=== PATIENT | female | born 2000 | race Caucasian/White ===

== ENCOUNTER → 2018-01-25 | Outpatient (CLI) | payer MEDICAID, OTHER ==
--- NOTE | 2018-01-25 13:05 | US ---
EXAMINATION TYPE: US OB anatomy transabd DATE OF EXAM: 01/25/2018 COMPARISON: NONE HISTORY: Large for dates 2nd Trimester 036.62x0 TECHNIQUE: EXAM MEASUREMENTS: GESTATIONAL AGE / DATING Physician Established: (19 weeks/4 days) EDC: 06/17/18 Dates by LMP: (19 weeks/4 days) EDC: 06/17/18 Dates by First Scan: not available Dates by Current Scan for: (19 weeks/3 days) EDC: 06/18/18 SURVEY IUP: Single PLACENTA: multiple placental lakes noted, anterior PREVIA: No previa IMELDA: 12.7 cm 4.0 CERVICAL LENGTH (transabdominal: norm > 3.0cm): 4.0 cm When patient directed to empty some from her bladder for additional pictures, she emptied her bladder BIOMETRY PRESENTATION: Breech BPD: 4.5 cm 19 weeks / 4 days HC: 16.9 cm 19 weeks / 4 days AC: 14.5 cm 19 weeks / 6 days FL: 3.1 cm 19 weeks / 4 days ESTIMATED WEIGHT IN GRAMS: 307 grams ESTIMATED WEIGHT IN LBS/OZ: 0 lbs. 11 oz. WEIGHT PERCENTAGE BASED ON ESTABLISHED DATE: 52 % HC/AC: 1.2 FL/AC: 21.3 HEART RATE: 157 bpm RHYTHM: Normal ANATOMY SEEN (within normal limits): * Lateral Vent (< 1 cm) 0.6 cm * Cisterna Magna (< 1.1 cm) 0.4 cm * Nuchal Fold (< 0.6 cm) 0.3 cm * Cerebellum (varies with age) 1.7 cm Choroid Plexus (bilateral) Midline Falx Cavus Septi Pellucidi Four Chamber Heart Outflow tracts: LVOT/RVOT Stomach Situs Nose / Lips Diaphragm Kidneys (bilateral) Bladder Cord Insert Three Vessel Cord Longitudinal Spine Transverse Spine Arms (bilateral) Legs (bilateral) Normal appearing ultrasound. IMPRESSION: Single viable intrauterine corresponding to ultrasound age 19 weeks 3 days with estimated d ate of delivery 06/18/2018. Unremarkable survey.
== END ==
LOC: RADUSWWP 09:37
PROVIDERS: ATTEND Obstetrics & Gynecology
DX: O36.62X0 Maternal care for excessive fetal growth, second trimester, not applicable or unspecified (principal); Z3A.19 19 weeks gestation of pregnancy
CPT/HCPCS: 76811

== ENCOUNTER → 2018-02-18 | Outpatient (CLI) | payer MEDICAID, OTHER ==
[2018-02-18 16:38] LABS: HCT 33.1 % (34.0-46.0); HGB 10.9 gm/dL (11.4-16.0); MCH 30.8 pg (25.0-35.0); MCHC 33.1 g/dL (31.0-37.0); MCV 93.2 fL (80.0-100.0); Mean Platelet Volume 7.6; Platelet Count 301 k/uL (150-450); RBC 3.55 m/uL (3.80-5.40); RDW 13.9 % (11.5-15.5)
== END ==
LOC: LABWHC1 15:17
PROVIDERS: ATTEND Obstetrics & Gynecology
DX: Z34.02 Encounter for supervision of normal first pregnancy, second trimester (principal); Z3A.00 Weeks of gestation of pregnancy not specified
CPT/HCPCS: 36415; 82565; 82947; 85027; 86762; 86777; 86778; 86780; 86850; 86900; 86901; 87340

== ENCOUNTER → 2018-03-19 | Outpatient (CLI) | payer MEDICAID, OTHER ==
[2018-03-20 13:22] LABS: HCT 34.1 % (34.0-46.0); HGB 11.2 gm/dL (11.4-16.0); MCH 32.6 pg (25.0-35.0); MCHC 32.8 g/dL (31.0-37.0); Platelet Count 317 k/uL (150-450); RBC 3.43 m/uL (3.80-5.40); RDW 13.3 % (11.5-15.5); WBC 9.8 k/uL (4.0-11.0)
[2018-03-20 14:21] LABS: MCV 99.4 fL (80.0-100.0)
== END | disposition home or self-care (01) ==
LOC: EDSTATUS 10:31 → LABWHC1 12:00 → LABPRL 03-20 11:40
PROVIDERS: ATTEND Obstetrics & Gynecology
DX: Z34.02 Encounter for supervision of normal first pregnancy, second trimester (principal)
CPT/HCPCS: 85027; 86850; 86900; 86901

== ENCOUNTER → 2018-03-30 | Outpatient (CLI) | payer MEDICAID, OTHER ==
[2018-03-30 12:50] LABS: HCT 30.1 % (34.0-46.0); HGB 10.2 gm/dL (11.4-16.0); MCH 31.9 pg (25.0-35.0); MCHC 33.8 g/dL (31.0-37.0); Platelet Count 288 k/uL (150-450); RBC 3.19 m/uL (3.80-5.40); RDW 13.6 % (11.5-15.5); WBC 8.8 k/uL (4.0-11.0)
[2018-03-30 13:04] LABS: MCV 94.4 fL (80.0-100.0)
== END | disposition home or self-care (01) ==
LOC: LABWHC1 10:22
PROVIDERS: ATTEND Obstetrics & Gynecology
DX: Z34.02 Encounter for supervision of normal first pregnancy, second trimester (principal)
CPT/HCPCS: 36415; 82950; 85027; 86850

== ENCOUNTER → 2018-05-13 | Outpatient (CLI) | payer OTHER ==
--- NOTE | 2018-05-13 15:43 | US ---
EXAMINATION TYPE: US OB >= 14 wk fetus DATE OF EXAM: 05/13/2018 COMPARISON: Second trimester ultrasound January 25, 2018. CLINICAL HISTORY: O36.63X0 Large for dates third trimester; TECHNIQUE: Transabdominal (TA) GESTATIONAL AGE / DATING Physician Established: (35 weeks/0 days) EDC: 06/17/18 Dates by LMP: (35 weeks/0 days) EDC: 06/17/18 Dates by First Scan: 34 weeks/ 6 days EDC: 06/18/2018 Dates by Current Scan: (32 weeks/3 days) EDC: 07/05/2018 Beta HCG (if available): NA SURVEY IUP: Single PLACENTA: Anterior, couple of venous lakes noted superiorly and inferiorly PREVIA: No Previa IMELDA: 11.5 cm Normal CERVICAL LENGTH (transabdominal: norm > 3.0cm): 3.1 cm BIOMETRY PRESENTATION: Vertex LIE: Longitudinal BPD: 7.9 cm 31 weeks / 5 days HC: 28.8 cm 31 weeks / 5 days AC: 29.1 cm 336 weeks / 0 days FL: 6.6 cm 34 weeks / 1 days ESTIMATED WEIGHT IN GRAMS: 2120.0 grams ESTIMATED WEIGHT IN LBS/OZ: 4 lbs. 11 oz. WEIGHT PERCENTAGE BASED ON ESTABLISHED DATES: 7.5% HC/AC: 0.99 Normal FL/AC: 22.86 Normal HEART RATE: 134 bpm RHYTHM: Normal Single, live IUP,32 weeks/3 days, EDC: 07/05/2018 ; [id number]; EFW is less than10%, thus Dr Austin dawson be contacted of this finding at exam's end. JJ Single live intrauterine gestation is redemonstrated. Normal cephalad presentation to fetus is noted. No suspicious cervical thinning is seen. No ultrasound evidence for placenta previa. Venous lakes ar e felt present. Calculated amniotic fluid index is within normal limits. biometry measurements are fairly congruent except for estimated weight which is just below normal range. IMPRESSION: As above.
== END | disposition home or self-care (01) ==
LOC: RADUSWWP 14:54
PROVIDERS: ATTEND Obstetrics & Gynecology
DX: O36.63X0 Maternal care for excessive fetal growth, third trimester, not applicable or unspecified (principal); Z3A.32 32 weeks gestation of pregnancy
CPT/HCPCS: 76805

== ENCOUNTER 2019-01-28 17:56 | Emergency (ER) | payer OTHER ==
[2019-01-28 18:01] VITALS: BP 119/80; PULSE 114; RESP 18; TEMP 97.4
--- NOTE | 2019-01-28 18:54 | ED ---
General Adult HPI - General Chief complaint: Upper Respiratory Infection Stated complaint: Vomiting Time Seen by Provider: 01/28/19 18:43 Source: patient Mode of arrival: ambulatory Limitations: no limitations - History of Present Illness Initial comments: Patient is a 18-year-old female presenting to the emergency department with a chief complaint of a cough. She reports about 2 weeks ago she developed sinus congestion or sore throat. She states during the time she also developed a productive cough with white sputum production. She reports occasional chills but denies any fevers. She reports yesterday she had 2 episodes of nonbilious, posttussive emesis. Patient denies smoking, asthma or COPD. Although, she states there is exposure to secondhand smoke. Patient denies any abdominal pain, back pain, shortness of breath or chest pain. - Related Data Home Medications Medication Instructions Recorded Confirmed Pnv,Calcium 72/Iron/Folic Acid 1 tab PO DAILY 05/13/18 05/13/18 [ Plus Tablet] Levocetirizine Dihydrochloride 1 tab PO DAILY 05/14/18 05/14/18 [Xyzal] Previous Rx's Medication Instructions Recorded Ibuprofen [Motrin] 600 mg PO Q6HR PRN #30 tab 05/16/18 Albuterol Inhaler [Ventolin Hfa 1 - 2 puff INHALATION RT-Q6H PRN 01/28/19 Inhaler] #1 inhaler Azithromycin [Zithromax Z-pack] 0 mg PO DIRECTED #1 pack 01/28/19 Benzonatate [Tessalon Perles] 100 mg PO TID PRN #15 capsule 01/28/19 Allergies Allergy/AdvReac Type Severity Reaction Status Date / Time banana Allergy Nausea Verified 01/28/19 17:57 egg Allergy Vomiting Verified 01/28/19 17:57 milk Allergy Nausea & Verified 01/28/19 17:57 Vomiting tuna oil AdvReac Unknown Verified 01/28/19 17:57 Review of Systems ROS Statement: Those systems with pertinent positive or pertinent negative responses have been documented in the HPI. ROS Other: All systems not noted in ROS Statement are negative. Past Medical History Past Medical History: No Reported History Additional Past Medical History / Comment(s): Obstetrics history: This is her first and she's had care with me since 16 weeks gestation. Blood type is O- antibodies negative, rubella immune, RPR nonreactive, hep is B- , toxo blood loss is negative. Normal 1 hour glucose tolerance test. GBS unknown. History of Any Multi-Drug Resistant Organisms: None Reported Past Surgical History: Adenoidectomy, Ear Surgery, Tonsillectomy Past Anesthesia/Blood Transfusion Reactions: No Reported Reaction Past Psychological History: No Psychological Hx Reported Smoking Status: Never smoker Past Alcohol Use History: None Reported Past Drug Use History: None Reported - Past Family History Mother Family Medical History: Diabetes Mellitus General Exam Limitations: no limitations General appearance: alert, in no apparent distress Head exam: Present: atraumatic, normocephalic, normal inspection Eye exam: Present: normal appearance Pupils: Present: normal accommodation ENT exam: Present: normal exam, normal oropharynx (Uvula midline. No erythematous, enlarged tonsils or exudates.), mucous membranes moist, TM's normal bilaterally, normal external ear exam Neck exam: Present: normal inspection, full ROM, lymphadenopathy (Anterior cervical lymph nodes) Respiratory exam: Present: normal lung sounds bilaterally Cardiovascular Exam: Present: regular rate, normal rhythm, normal heart sounds Extremities exam: Present: normal inspection, full ROM Back exam: Present: normal inspection, full ROM Neurological exam: Present: alert, oriented X3 Psychiatric exam: Present: normal affect, normal mood Skin exam: Present: warm, dry, intact, normal color Course Vital Signs 01/28/19 17:57 Temperature 97.4 F L Pulse Rate 114 H Respiratory 18 Rate Blood Pressure 119/80 O2 Sat by Pulse 97 Oximetry Medical Decision Making - Medical Decision Making Patient is a 18-year-old female presenting to emergency Department with a chief complaint of a cough. She appears to have an upper respiratory infection as been ongoing for about 2 weeks along with a cough. No smoking, no COPD or asthma. Chest x-ray is unremarkable. Physical examination shows no signs of respiratory distress, wheezing, rales or rhonchi. I suspect the patient to have bronchitis. Considering her symptoms have been ongoing for about 2 weeks I'm going to treat the patient with azithromycin. Patient also given Tessalon Perles to help with the cough. Patient also given albuterol inhaler. Strict return parameters were thoroughly discussed with patient was understanding and agreeable. Case discussed with physician. Disposition Clinical Impression: Bronchitis Disposition: HOME SELF-CARE Condition: Stable Instructions (If sedation given, give patient instructions): Acute Bronchitis (ED) Additional Instructions: Please take prescribed medication as directed. Please follow with primary care. Patient to emergency department if symptoms worsen. Prescriptions: Benzonatate [Tessalon Perles] 100 mg PO TID PRN #15 capsule PRN Reason: Cough Albuterol Inhaler [Ventolin Hfa Inhaler] 1 - 2 puff INHALATION RT-Q6H PRN #1 inhaler PRN Reason: Shortness Of Breath Azithromycin [Zithromax Z-pack] 0 mg PO DIRECTED #1 pack Is patient prescribed a controlled substance at d/c from ED?: No Referrals: Nonstaff,Physician [REFERRING] - 1-2 days Time of Disposition: 20:03
--- NOTE | 2019-01-28 20:11 | XR ---
EXAMINATION TYPE: XR chest 2V DATE OF EXAM: 01/28/2019 COMPARISON: NONE HISTORY: Cough, sore throat TECHNIQUE: Frontal and lateral views of the chest are obtained. FINDINGS: There is no focal air space opacity, pleural effusion, or pneumothorax seen. The cardiac silhouette size is within normal limits. Mild convex right thoracic curvature. IMPRESSION: No acute cardiopulmonary process.
== END 2019-01-28 20:15 | disposition home or self-care (01) ==
LOC: EC 17:56
DX: J40 Bronchitis, not specified as acute or chronic (principal); Z91.018 Allergy to other foods; Z91.012 Allergy to eggs; Z91.011 Allergy to milk products
CPT/HCPCS: 71046; 99283

== ENCOUNTER 2019-03-28 17:14 | Emergency (ER) | payer OTHER ==
[2019-03-28 17:18] VITALS: BP 133/84; PULSE 98; RESP 20; TEMP 97.7
--- NOTE | 2019-03-28 17:29 | ED ---
General Adult HPI - General Chief complaint: Extremity Injury, Upper Stated complaint: Wrist pain Time Seen by Provider: 03/28/19 17:23 Source: patient Mode of arrival: ambulatory Limitations: no limitations - History of Present Illness Initial comments: Patient is a 18-year-old female presenting to the emergency department with a chief complaint of left wrist pain. Patient reports about one week ago she was carrying a basket of laundry and felt a pop on the left wrist and a sense developed pain. States the pain is exacerbated with flexion of the left wrist. Denies any numbness or tingling. Denies any trauma to the region or previous surgeries. Does report taking [id number] analgesics with some improvement of symptoms. Denies any skin discoloration or swelling. - Related Data Home Medications Medication Instructions Recorded Confirmed Pnv,Calcium 72/Iron/Folic Acid 1 tab PO DAILY 05/13/18 05/13/18 [ Plus Tablet] Levocetirizine Dihydrochloride 1 tab PO DAILY 05/14/18 05/14/18 [Xyzal] Previous Rx's Medication Instructions Recorded Ibuprofen [Motrin] 600 mg PO Q6HR PRN #30 tab 05/16/18 Albuterol Inhaler [Ventolin Hfa 1 - 2 puff INHALATION RT-Q6H PRN 01/28/19 Inhaler] #1 inhaler Azithromycin [Zithromax Z-pack] 0 mg PO DIRECTED #1 pack 01/28/19 Benzonatate [Tessalon Perles] 100 mg PO TID PRN #15 capsule 01/28/19 Allergies Allergy/AdvReac Type Severity Reaction Status Date / Time banana Allergy Nausea Verified 03/28/19 17:17 egg Allergy Vomiting Verified 03/28/19 17:17 milk Allergy Nausea & Verified 03/28/19 17:17 Vomiting tuna oil AdvReac Unknown Verified 03/28/19 17:17 Review of Systems ROS Statement: Those systems with pertinent positive or pertinent negative responses have been documented in the HPI. ROS Other: All systems not noted in ROS Statement are negative. Past Medical History Past Medical History: No Reported History Additional Past Medical History / Comment(s): Obstetrics history: This is her first and she's had care with me since 16 weeks gestation. Blood type is O- antibodies negative, rubella immune, RPR nonreactive, hep is B- , toxo blood loss is negative. Normal 1 hour glucose tolerance test. GBS unknown. History of Any Multi-Drug Resistant Organisms: None Reported Past Surgical History: Adenoidectomy, Ear Surgery, Tonsillectomy Past Anesthesia/Blood Transfusion Reactions: No Reported Reaction Past Psychological History: No Psychological Hx Reported Smoking Status: Never smoker Past Alcohol Use History: None Reported Past Drug Use History: None Reported - Past Family History Mother Family Medical History: Diabetes Mellitus General Exam Limitations: no limitations General appearance: alert, in no apparent distress Head exam: Present: atraumatic, normocephalic, normal inspection Eye exam: Present: normal appearance Pupils: Present: normal accommodation ENT exam: Present: normal exam, mucous membranes moist Neck exam: Present: normal inspection, full ROM Respiratory exam: Present: normal lung sounds bilaterally Cardiovascular Exam: Present: regular rate, normal rhythm, normal heart sounds Extremities exam: Present: normal inspection, tenderness (No anatomical snuffbox tenderness.), normal capillary refill. Absent: full ROM (Limited range of motion with full flexion.) Back exam: Present: normal inspection, full ROM Neurological exam: Present: alert, oriented X3 Psychiatric exam: Present: normal affect, normal mood Skin exam: Present: warm, dry, intact, normal color Course Vital Signs 03/28/19 17:15 Temperature 97.7 F Pulse Rate 98 Respiratory 20 Rate Blood Pressure 133/84 O2 Sat by Pulse 99 Oximetry Medical Decision Making - Medical Decision Making Patient is a 18-year-old female presenting to emergency Department with a chief complaint of wrist pain. On exam patient does have tenderness in the left wrist with limited range of motion of full flexion. This occurred 1 week ago after she was carrying laundry basket. No anatomical snuffbox tenderness. No obvious signs of trauma, swelling, skin discoloration. X-rays unremarkable. Shahab wrap was applied. Patient advised to apply ice compresses and with Shahab wrap only throughout the day. She was advised to follow with delivery specialist. She was advised to alternate between Tylenol Motrin for pain control. Return parameters discussed the patient was understanding and agreeable. Case discussed with physician. Disposition Clinical Impression: Sprain of wrist, left, Wrist pain, left Disposition: HOME SELF-CARE Condition: Stable Instructions (If sedation given, give patient instructions): Wrist Injury (ED) Additional Instructions: Follow-up with an delivery specialist if symptoms not improved. Apply ice compress to minimize symptoms. Wear Shahab wrap throughout the day but not at night. Return to emergency department if symptoms worsen. Is patient prescribed a controlled substance at d/c from ED?: No Referrals: Concha Pedroza MD [Primary Care Provider] - 1-2 days Josesito Torres PAC [PHYSICIAN [employer]ELD MECHANIC] - 1-2 days Time of Disposition: 17:55
--- NOTE | 2019-03-28 17:47 | XR ---
EXAMINATION TYPE: XR wrist complete LT DATE OF EXAM: 03/28/2019 COMPARISON: 03/10/2013 HISTORY: Wrist pain TECHNIQUE: 4 views FINDINGS: I see no fracture nor dislocation. Joint spaces are normal. Carpal bones are intact. There are no pathologic calcifications. Scaphoid appears normal. IMPRESSION: Normal left wrist. No change.
== END 2019-03-28 18:00 | disposition home or self-care (01) ==
LOC: EC 17:14
DX: S63.502A Unspecified sprain of left wrist, initial encounter (principal); Z91.018 Allergy to other foods; Z91.012 Allergy to eggs; Z91.013 Allergy to seafood; Z91.011 Allergy to milk products; X50.9XXA Other and unspecified overexertion or strenuous movements or postures, initial encounter
CPT/HCPCS: 99283

== ENCOUNTER 2020-08-26 23:49 | Emergency (ER) | payer OTHER ==
[2020-08-27 00:02] VITALS: RESP 16; TEMP 97.9
[2020-08-27] MEDS ORDERED: Rhogam IMMUNE GLOBULIN 1,500 UNIT/1 ML IM ONE (00:21)
[2020-08-27 00:38] LABS: Basophils # (A) 0.1 k/uL (0-0.2); Basophils % (A) 1 %; Eosinophils # (A) 0.2 k/uL (0-0.7); Eosinophils % (A) 2 %; HCT 33.7 % (34.0-46.0); HGB 11.8 gm/dL (11.4-16.0); Lymphocytes # (A) 2.6 k/uL (1.0-4.8); Lymphocytes % (A) 28 %; MCH 30.9 pg (25.0-35.0); MCHC 34.9 g/dL (31.0-37.0); MCV 88.6 fL (80.0-100.0); Mean Platelet Volume 7.7; Monocytes # (A) 0.5 k/uL (0-1.0); Monocytes % (A) 6 %; Neutrophils # (A) 5.7 k/uL (1.3-7.7); Neutrophils % (A) 62 %; Platelet Count 294 k/uL (150-450); RDW 14.1 % (11.5-15.5); WBC 9.1 k/uL (3.8-10.6)
[2020-08-27 01:00] LABS: African American GFR (CKD) >90 (>60 ml/min/1.73 sqM); Anion Gap 8 mmol/L; Blood Urea Nitrogen 9 mg/dL (7-17); Calcium 9.8 mg/dL (8.4-10.2); Carbon Dioxide 23 mmol/L (22-30); Chloride 107 mmol/L (98-107); Glucose 97 mg/dL (74-99); Non-African American GFR(CKD) >90 (>60 ml/min/1.73 sqM); Potassium 3.3 mmol/L (3.5-5.1); Sodium 138 mmol/L (137-145)
--- NOTE | 2020-08-27 01:08 | ED ---
Female Urogenital HPI - General Chief complaint: Vaginal Bleeding Stated complaint: Vaginal Bleeding, 16 wks pgt Time Seen by Provider: 08/27/20 00:02 Source: patient, RN notes reviewed Mode of arrival: ambulatory Limitations: no limitations - History of Present Illness Initial comments: This a 19-year-old female presents emergency from chief complaint of vaginal bleeding. Patient states that she is currently 16 weeks 3 days she is A0 and is seen [employer] in [place]. Patient states that she started having some swelling recently no significant abdominal pain and cramping of back pain no dysuria no hematuria. - Related Data Home Medications Medication Instructions Recorded Confirmed Pnv,Calcium 72/Iron/Folic Acid 1 tab PO DAILY 05/13/18 05/13/18 [ Plus Tablet] Levocetirizine Dihydrochloride 1 tab PO DAILY 05/14/18 05/14/18 [Xyzal] Previous Rx's Medication Instructions Recorded Ibuprofen [Motrin] 600 mg PO Q6HR PRN #30 tab 05/16/18 Albuterol Inhaler (Mhu) [Ventolin 1 - 2 puff INHALATION RT-Q6H PRN 01/28/19 Hfa Inhaler (Mhu)] #1 inhaler Azithromycin [Zithromax Z-pack (6 0 mg PO DIRECTED #1 pack 01/28/19 tabs)] Benzonatate [Tessalon Perles] 100 mg PO TID PRN #15 capsule 01/28/19 Cephalexin [Keflex] 500 mg PO Q8HR #21 cap 08/27/20 Allergies Allergy/AdvReac Type Severity Reaction Status Date / Time banana Allergy Nausea Verified 08/27/20 00:02 egg Allergy Vomiting Verified 08/27/20 00:02 milk Allergy Nausea & Verified 08/27/20 00:02 Vomiting tuna oil AdvReac Unknown Verified 08/27/20 00:02 Review of Systems ROS Statement: Those systems with pertinent positive or pertinent negative responses have been documented in the HPI. ROS Other: All systems not noted in ROS Statement are negative. Past Medical History Past Medical History: No Reported History Additional Past Medical History / Comment(s): Obstetrics history: This is her first and she's had care with me since 16 weeks gestation. Blood type is O- antibodies negative, rubella immune, RPR nonreactive, hep is B- , toxo blood loss is negative. Normal 1 hour glucose tolerance test. GBS unknown. FAP syndrome History of Any Multi-Drug Resistant Organisms: None Reported Past Surgical History: Adenoidectomy, Ear Surgery, Tonsillectomy Past Anesthesia/Blood Transfusion Reactions: No Reported Reaction Past Psychological History: No Psychological Hx Reported Smoking Status: Never smoker Past Alcohol Use History: None Reported Past Drug Use History: None Reported - Past Family History Mother Family Medical History: Diabetes Mellitus General Exam Limitations: no limitations General appearance: alert, in no apparent distress Head exam: Present: atraumatic, normocephalic, normal inspection Neck exam: Present: normal inspection. Absent: tenderness, meningismus, lymphadenopathy Respiratory exam: Present: normal lung sounds bilaterally. Absent: respiratory distress, wheezes, rales, rhonchi, stridor Cardiovascular Exam: Present: regular rate, normal rhythm, normal heart sounds. Absent: systolic murmur, diastolic murmur, rubs, gallop, clicks GI/Abdominal exam: Present: soft, normal bowel sounds. Absent: distended, tenderness, guarding, rebound, rigid Back exam: Absent: CVA tenderness (R), CVA tenderness (L) Neurological exam: Present: alert Skin exam: Present: warm, dry, intact, normal color. Absent: rash Course Vital Signs 08/26/20 23:57 Temperature 97.9 F Pulse Rate 96 Respiratory 16 Rate Blood Pressure 113/81 O2 Sat by Pulse 96 Oximetry Medical Decision Making - Medical Decision Making Patient ultrasound does not reveal any complicating processes. Patient does have evidence urinary tract infection. Patient's O- blood type was given RhoGAM. Patient be discharged in stable condition with antibiotics. - Lab Data Result diagrams: 08/27/20 00:31 08/27/20 00:31 Lab Results 08/27/20 08/27/20 08/27/20 Range/Units 00:29 00:31 00:31 WBC 9.1 (3.8-10.6) k/uL RBC 3.80 (3.80-5.40) m/uL Hgb 11.8 (11.4-16.0) gm/dL Hct 33.7 L (34.0-46.0) % MCV 88.6 (80.0-100.0) fL MCH 30.9 (25.0-35.0) pg MCHC 34.9 (31.0-37.0) g/dL RDW 14.1 (11.5-15.5) % Plt Count 294 (150-450) k/uL MPV 7.7 Neutrophils % 62 % Lymphocytes % 28 % Monocytes % 6 % Eosinophils % 2 % Basophils % 1 % Neutrophils # 5.7 (1.3-7.7) k/uL Lymphocytes # 2.6 (1.0-4.8) k/uL Monocytes # 0.5 (0-1.0) k/uL Eosinophils # 0.2 (0-0.7) k/uL Basophils # 0.1 (0-0.2) k/uL Sodium 138 (137-145) mmol/L Potassium 3.3 L (3.5-5.1) mmol/L Chloride 107 (98-107) mmol/L Carbon Dioxide 23 (22-30) mmol/L Anion Gap 8 mmol/L BUN 9 (7-17) mg/dL Creatinine 0.47 L (0.52-1.04) mg/dL Est GFR (CKD-EPI)AfAm >90 (>60 ml/min/1.73 sqM) Est GFR (CKD-EPI)NonAf >90 (>60 ml/min/1.73 sqM) Glucose 97 (74-99) mg/dL Calcium 9.8 (8.4-10.2) mg/dL Urine Color Urine Appearance (Clear) Urine pH (5.0-8.0) Ur Specific Mcbee (1.001-1.035) Urine Protein (Negative) Urine Glucose (UA) (Negative) Urine Ketones (Negative) Urine Blood (Negative) Urine Nitrite (Negative) Urine Bilirubin (Negative) Urine Urobilinogen (<2.0) mg/dL Ur Leukocyte Esterase (Negative) Urine RBC (0-5) /hpf Urine WBC (0-5) /hpf Ur Squamous Epith Cells (0-4) /hpf Calcium Oxalate Crystal (None) /hpf Urine Bacteria (None) /hpf Urine Mucus (None) /hpf Blood Type O Negative Blood Type Recheck O Neg Bld Type Recheck Status No Antibody Screen NEGATIVE Spec Expiration Date 08/30/2020 - 232808/27/20 Range/Units 01:52 WBC (3.8-10.6) k/uL RBC (3.80-5.40) m/uL Hgb (11.4-16.0) gm/dL Hct (34.0-46.0) % MCV (80.0-100.0) fL MCH (25.0-35.0) pg MCHC (31.0-37.0) g/dL RDW (11.5-15.5) % Plt Count (150-450) k/uL MPV Neutrophils % % Lymphocytes % % Monocytes % % Eosinophils % % Basophils % % Neutrophils # (1.3-7.7) k/uL Lymphocytes # (1.0-4.8) k/uL Monocytes # (0-1.0) k/uL Eosinophils # (0-0.7) k/uL Basophils # (0-0.2) k/uL Sodium (137-145) mmol/L Potassium (3.5-5.1) mmol/L Chloride (98-107) mmol/L Carbon Dioxide (22-30) mmol/L Anion Gap mmol/L BUN (7-17) mg/dL Creatinine (0.52-1.04) mg/dL Est GFR (CKD-EPI)AfAm (>60 ml/min/1.73 sqM) Est GFR (CKD-EPI)NonAf (>60 ml/min/1.73 sqM) Glucose (74-99) mg/dL Calcium (8.4-10.2) mg/dL Urine Color Yellow Urine Appearance Cloudy H (Clear) Urine pH 6.0 (5.0-8.0) Ur Specific Mcbee 1.034 (1.001-1.035) Urine Protein 1+ H (Negative) Urine Glucose (UA) Negative (Negative) Urine Ketones 1+ H (Negative) Urine Blood Moderate H (Negative) Urine Nitrite Negative (Negative) Urine Bilirubin 1+ H (Negative) Urine Urobilinogen 4.0 (<2.0) mg/dL Ur Leukocyte Esterase Large H (Negative) Urine RBC 6 H (0-5) /hpf Urine WBC 71 H (0-5) /hpf Ur Squamous Epith Cells 7 H (0-4) /hpf Calcium Oxalate Crystal Rare H (None) /hpf Urine Bacteria Rare H (None) /hpf Urine Mucus Many H (None) /hpf Blood Type Blood Type Recheck Bld Type Recheck Status Antibody Screen Spec Expiration Date Disposition Clinical Impression: Urinary tract infection, Vaginal bleeding during Disposition: HOME SELF-CARE Condition: Stable Instructions (If sedation given, give patient instructions): Urinary Tract Infection in Women (ED) Additional Instructions: Please return to the Emergency Department if symptoms worsen or any other concerns. Prescriptions: Cephalexin [Keflex] 500 mg PO Q8HR #21 cap Is patient prescribed a controlled substance at d/c from ED?: No Referrals: None,Stated [Primary Care Provider] - 1-2 days Time of Disposition: 02:18
--- NOTE | 2020-08-27 01:31 | US ---
EXAMINATION TYPE: US OB >= 14 wk fetus DATE OF EXAM: 08/27/2020 COMPARISON: None for this . US 2019 CLINICAL HISTORY: bleeding Bleeding. . TECHNIQUE: Transabdominal (TA) GESTATIONAL AGE / DATING Physician Established: (16 weeks/2 days) EDC: 02/08/2021 Dates by LMP: 05/04/2020 (16 weeks/2 days) EDC: 02/08/2021 Dates by First Scan: This is first scan at this facility. Dates by Current Scan: (17 weeks/0 days) EDC: 02/04/2021 SURVEY IUP: Single PLACENTA: Fundal. Multiple hypoechoic areas seen. Larges hypoechoic area seen measures: 2.0 x 1.9 x 0.5 cm. Possible gardner. Vascularity seen posterior to the placenta. PREVIA: No Previa seen. IMELDA: 10.89 cm Normal CERVICAL LENGTH (transabdominal: norm > 3.0cm): 3.52 cm BIOMETRY PRESENTATION: Vertex LIE: Oblique BPD: 3.42 cm 16 weeks / 4 days HC: 13.08 cm 16 weeks / 5 days AC: 12.27 cm 17 weeks / 6 days FL: 2.25 cm 16 weeks / 5 days ESTIMATED WEIGHT IN GRAMS: 187.89 grams ESTIMATED WEIGHT IN LBS/OZ: 0 lbs. 7 oz. WEIGHT PERCENTAGE BASED ON ESTABLISHED DATES: 95.0% HC/AC: 1.07 Normal FL/AC: 18.32 HEART RATE: 146 bpm RHYTHM: Normal Weight percentage based on established dates is 95.0% IMPRESSION: The ultrasound gestational age is 17 weeks. No evidence of placenta previa. I do not see a definite placental abruption.
[2020-08-27 02:11] LABS: Appearance,Urine Cloudy (Clear); Bacteria,Urine Rare /hpf; Bilirubin,Urine 1+ (Negative); Blood,Urine Moderate (Negative); Calcium Oxalate Crystals,Urine Rare /hpf; Color,Urine Yellow; Glucose,Urine (UA) Negative (Negative); Ketones,Urine 1+ (Negative); Leukocyte Esterase,Urine Large (Negative); Mucus,Urine Many /hpf; Nitrite,Urine Negative (Negative); Protein,Urine 1+ (Negative); RBC,Urine 6 /hpf (0-5); Specific Gravity,Urine 1.034 (1.001-1.035); Squamous Epithelial Cell,Urine 7 /hpf (0-4); WBC,Urine 71 /hpf (0-5)
[2020-08-27] MEDS ORDERED: cefTRIAXone IN SWFI 1,000 MG/10 ML SYRINGE IVP STA (02:16)
[2020-08-27 02:25] VITALS: BP 106/79; PULSE 72
== END 2020-08-27 02:31 | disposition home or self-care (01) ==
LOC: EC 23:49
DX: O23.42 Unspecified infection of urinary tract in pregnancy, second trimester (principal); O20.9 Hemorrhage in early pregnancy, unspecified; Z3A.17 17 weeks gestation of pregnancy; Z79.1 Long term (current) use of non-steroidal anti-inflammatories (NSAID); Z79.899 Other long term (current) drug therapy; Z83.3 Family history of diabetes mellitus
CPT/HCPCS: 36415; 86900; 86901; 80048; 85025; 86850; 81001; 87086; 76805; 96374; 96372; 99284; J2790; J0696

== ENCOUNTER 2020-09-09 17:44 | Emergency (ER) | payer OTHER ==
[2020-09-09 18:02] VITALS: BP 102/70; PULSE 94; RESP 18; TEMP 98.1
[2020-09-09 18:48] LABS: Appearance,Urine Cloudy (Clear); Bacteria,Urine Occasional /hpf; Bilirubin,Urine Negative (Negative); Blood,Urine Negative (Negative); Budding Yeast,Urine Few /hpf; Color,Urine Yellow; Glucose,Urine (UA) Negative (Negative); Ketones,Urine Negative (Negative); Leukocyte Esterase,Urine Moderate (Negative); Mucus,Urine Many /hpf; Nitrite,Urine Negative (Negative); PH, Urine 7.5 (5.0-8.0); Protein,Urine Trace (Negative); RBC,Urine 2 /hpf (0-5); Specific Gravity,Urine 1.024 (1.001-1.035); Squamous Epithelial Cell,Urine 13 /hpf (0-4); Urobilinogen,Urine <2.0 mg/dL (<2.0); WBC,Urine 8 /hpf (0-5)
[2020-09-09] MEDS ORDERED: AZITHROMYCIN 500 MG TAB PO STA (19:33)
[2020-09-09] MEDS ORDERED: cefTRIAXone 1,000 MG VIAL (IM USE) IM STA (19:33)
--- NOTE | 2020-09-09 19:48 | ED ---
General Adult HPI - General Chief complaint: Abdominal Pain Stated complaint: revisit- abd pain, 18wks preg Time Seen by Provider: 09/09/20 19:13 Source: patient Mode of arrival: ambulatory Limitations: no limitations - History of Present Illness Initial comments: 19 year-old male patient presents to the emergency department for evaluation of vaginal discharge and abdominal pain. Patient is 18 weeks , with a living child at home. Patient states she is here on vacation from [place]. She was seen last week for vaginal bleeding and abdominal pain. Had full labs and US which was unremarkable. She did receive rhogam at that visit. She was treated for UTI. States that the bleeding seems to have stopped but she is having brownish colored discharge that is stringy. Denies any vaginal pain or itching. Denies concern for STI. Reports pain to the midepigastric area and to the suprapubic region. Denies any current dysuria, urinary urgency, urinary frequency. Patient denies any recent rash, fever, chills, cough, shortness of breath, chest pain, nausea, vomiting, diarrhea, constipation, back pain, numbness, tingling, dizziness, weakness, headache, visual changes, or any other complaints. - Related Data Home Medications Medication Instructions Recorded Confirmed Pnv,Calcium 72/Iron/Folic Acid 1 tab PO DAILY 05/13/18 09/09/20 [ Plus Tablet] Allergies Allergy/AdvReac Type Severity Reaction Status Date / Time banana Allergy Nausea Verified 09/09/20 21:47 egg Allergy Vomiting Verified 09/09/20 21:47 milk Allergy Nausea & Verified 09/09/20 21:47 Vomiting tuna oil AdvReac Unknown Verified 09/09/20 21:47 Review of Systems ROS Statement: Those systems with pertinent positive or pertinent negative responses have been documented in the HPI. ROS Other: All systems not noted in ROS Statement are negative. Past Medical History Past Medical History: No Reported History Additional Past Medical History / Comment(s): Obstetrics history: This is her first and she's had care with me since 16 weeks gestation. Blood type is O- antibodies negative, rubella immune, RPR nonreactive, hep is B- , toxo blood loss is negative. Normal 1 hour glucose tolerance test. GBS unknown. FAP syndrome History of Any Multi-Drug Resistant Organisms: None Reported Past Surgical History: Adenoidectomy, Ear Surgery, Tonsillectomy Past Anesthesia/Blood Transfusion Reactions: No Reported Reaction Past Psychological History: No Psychological Hx Reported Smoking Status: Never smoker Past Alcohol Use History: None Reported Past Drug Use History: None Reported - Past Family History Mother Family Medical History: Diabetes Mellitus General Exam Limitations: no limitations General appearance: alert, in no apparent distress, other (This is a well- developed, well-nourished adult female patient in no acute distress. Vital signs upon presentation are temperature 98.1F, pulse 94, respirations 18, blood pressure 102/70, pulse ox 100% on room air.) ENT exam: Present: normal exam, normal oropharynx, mucous membranes moist Respiratory exam: Present: normal lung sounds bilaterally. Absent: respiratory distress, wheezes, rales, rhonchi, stridor Cardiovascular Exam: Present: regular rate, normal rhythm, normal heart sounds. Absent: systolic murmur, diastolic murmur, rubs, gallop, clicks GI/Abdominal exam: Present: soft, normal bowel sounds. Absent: distended, tenderness, guarding, rebound, rigid Back exam: Present: normal inspection. Absent: CVA tenderness (R), CVA tenderness (L) Neurological exam: Present: alert, oriented X3, CN II-XII intact Psychiatric exam: Present: normal affect, normal mood Skin exam: Present: warm, dry, intact, normal color. Absent: rash Course Vital Signs 09/09/20 17:59 Temperature 98.1 F Pulse Rate 94 Respiratory 18 Rate Blood Pressure 102/70 O2 Sat by Pulse 100 Oximetry Medical Decision Making - Medical Decision Making 19 year-old male patient presents for abdominal pain and abnormal vaginal discharge. She is 18 weeks . Physical exam reveals mild suprapubic tenderness. No fever. Pelvic exam revealed thick stringy discharge. Cervix appears normal. US showed no complicating process. heart rate 142. She we will treat for STI just in case with IM rocephin and oral azithromcyin, since her OBGYN is located in [place] and she will not be able to follow up right away. She'll be discharged follow-up with [facility] as soon as possible, states she is traveling back home within the next 2 days. Return parameters were discussed in detail. She verbalizes understanding and agrees with this plan. Case discussed with my attending Dr. Espinoza. - Lab Data Lab Results 09/09/20 09/09/20 Range/Units 18:37 21:30 Urine Color Yellow Urine Appearance Cloudy H (Clear) Urine pH 7.5 (5.0-8.0) Ur Specific [place] 1.024 (1.001-1.035) Urine Protein Trace H (Negative) Urine Glucose (UA) Negative (Negative) Urine Ketones Negative (Negative) Urine Blood Negative (Negative) Urine Nitrite Negative (Negative) Urine Bilirubin Negative (Negative) Urine Urobilinogen <2.0 (<2.0) mg/dL Ur Leukocyte Esterase Moderate H (Negative) Urine RBC 2 (0-5) /hpf Urine WBC 8 H (0-5) /hpf Ur Squamous Epith Cells 13 H (0-4) /hpf Urine Bacteria Occasional H (None) /hpf Urine Mucus Many H (None) /hpf Urine Yeast (Budding) Few H (None) /hpf Trichomonas Ag (Rapid) Negative (Negative) - Radiology Data Radiology results: report reviewed, image reviewed Ultrasound of the fetus is obtained. Report was reviewed in its entirety. Impression by Dr. Roque placental abruption. getting process seen. No evidence of placenta previa. Disposition Clinical Impression: Vaginal discharge, Abdominal pain during Disposition: HOME SELF-CARE Condition: Good Instructions (If sedation given, give patient instructions): Abdominal Pain in (ED) Additional Instructions: Follow-up with your [facility] for recheck as soon as possible. Return to the emergency department for any new, worsening, or concerning symptoms. Is patient prescribed a controlled substance at d/c from ED?: No Referrals: None,Stated [Primary Care Provider] - 1-2 days Time of Disposition: 21:51
--- NOTE | 2020-09-09 21:00 | US ---
EXAMINATION TYPE: US OB >= 14 wk fetus DATE OF EXAM: 09/09/2020 COMPARISON: US CLINICAL HISTORY: Abd pain, 18 weeks, .Pain. . TECHNIQUE: Transabdominal (TA) GESTATIONAL AGE / DATING Physician Established: (18 weeks/2 days) EDC: 02/08/2021 Dates by LMP: (18 weeks/2 days) EDC: 02/08/2021 Dates by First Scan: (18 weeks/6 days) EDC: 02/04/2021 Dates by Current Scan: (18 weeks/ 0 days) EDC: 02/10/2021 SURVEY IUP: Single PLACENTA: Posterior. Placenta does appear to be heterogeneous in echotexture. Complex area seen measu ring 1.6 x 0.8 x 0.7 cm. PREVIA: No Previa is seen at this time. Limited evaluation, bladder not fully distended. IMELDA: 10.23 cm Normal CERVICAL LENGTH (transabdominal: norm > 3.0cm): 3.33 cm BIOMETRY PRESENTATION: Breech LIE: Oblique BPD: 3.76 cm 17 weeks / 3 days HC: 14.78 cm 17 weeks / 6 days AC: 13.33 cm 18 weeks / 6 days FL: 2.63 cm 18 weeks / 0 days ESTIMATED WEIGHT IN GRAMS: 235.86 grams ESTIMATED WEIGHT IN LBS/OZ: 0 lbs. 8 oz. WEIGHT PERCENTAGE BASED ON ESTABLISHED DATES: 49.4% HC/AC: 1.11 Normal FL/AC: 19.75 HEART RATE: 142 bpm RHYTHM: Normal \ IMPRESSION: No placental abruption. No complicating process seen. No evidence of placenta previa.
[2020-09-10 14:52] LABS: C. trachomatis,PCR Negative (Neg,Equiv); Chlamydia trachomatis Source Cervix; N. gonorrhoeae,PCR Negative (Neg,Equiv); Neisseria Source Cervix
== END 2020-09-09 21:57 | disposition home or self-care (01) ==
LOC: EC 17:44
DX: O23.592 Infection of other part of genital tract in pregnancy, second trimester (principal); N89.8 Other specified noninflammatory disorders of vagina; O26.892 Other specified pregnancy related conditions, second trimester; R10.9 Unspecified abdominal pain; Z3A.18 18 weeks gestation of pregnancy
CPT/HCPCS: 81001; 87808; 87491; 87591; 87070; 76805; 96372; 99284; J0696

== ENCOUNTER → 2023-05-14 | Outpatient (CLI) | payer OTHER ==
--- NOTE | 2023-05-14 21:59 | US ---
EXAMINATION TYPE: US thyroid st tissue head/neck DATE OF EXAM: 05/14/2023 COMPARISON: NONE CLINICAL INDICATION: Female, 22 years old with history of D13.91 FAMILIAL ADENOMATOUS POLYPOSIS; Fami lial multiple polyposis syndrome. GLAND SIZE: Right Lobe: 4.4 x 1.7 x 1.3 cm Overall Parenchyma: homogeneous Left Lobe: 4.4 x 1.4 x 1.2 cm Overall Parenchyma: homogeneous Isthmus Thickness: 0.26 cm NODULES RIGHT: # of nodules measured on right: 1 1. 0.5 X 0.3 x 0.2 cm, lower mid, TIRADS Score: 0 TIRADS Category 1: Composition: Cystic or almost completely cystic (0 points). Recommendation: No FNA Prior size: No prior Compatible: Cyst. LEFT: # of nodules measured on left: 0 ISTHMUS: # of nodules measured in the isthmus: 0 Bilateral neck scanned, no evidence of lymphadenopathy. IMPRESSION: No suspicious thyroid nodules.
== END | disposition home or self-care (01) ==
LOC: RADUSWWP 14:56
PROVIDERS: ATTEND Internal Medicine Gastroenterology
DX: D13.91 Familial adenomatous polyposis (principal)
CPT/HCPCS: 76536

== ENCOUNTER → 2023-07-06 | Day surgery (SDC) | payer OTHER ==
[~2023-07-06] MED LIST: LIDOCAINE 1% (10MG/ML) FOR IV START INTRADERMA PRN; LIDOCAINE 1% INJ 10MG/ML (20 ML MDV) ONE; PROPOFOL 10 MG/ML 20 ML VIAL IV ONE
[2023-07-06] MEDS: LACTATED RINGERS 1,000 ML IV SCH (06:40)
[2023-07-06 06:47] VITALS: TEMP 97.4
--- NOTE | 2023-07-06 07:21 | P.PCN ---
Date of Procedure: 07/06/23 Procedure(s) Performed: Brief history: Patient is a pleasant 22-year-old white female scheduled for an elective upper endoscopy as well as ileoscopy as a part of surveillance for history of familial adenomatous polyposis diagnosed at age 16. She had her first colonoscopy at age 18 and was noted to have multiple colon polyps and underwent total proctocolectomy with creation of J-pouch and subsequently had ileostomy done because of recurrent small bowel obstruction. She has been complaining of persistent nausea lately. She scheduled for an upper endoscopy as well as ileoscopy as a part of surveillance of FAP. Procedure performed: Esophagogastroduodenoscopy biopsy Colonoscopy Preoperative diagnosis: History of familial adenomatous polyposis diagnosed at age 16 s/p total proctocolectomy with ileostomy Chronic nausea Anesthesia: MAC Procedure: After informed consent was obtained from the patient was brought into the endoscopy unit and IV sedation was administered by anesthesia under continuous monitoring. Initially upper endoscopy was done. The Olympus GF 160 video endoscope was inserted inserted into the mouth and esophagus intubated without any difficulty and was gradually advanced into the stomach and duodenum and carefully examined. The bulb and second part of the duodenum appeared normal. The scope was then withdrawn into the stomach adequately insufflated with air and upon careful examination the antrum and mid gastritis and biopsies were done from this area. There were multiple small gastric polyps noted in the gastric body which were biopsied. Mucosa of the body, cardia and fundus appeared normal. The scope was then withdrawn into the esophagus. The GE junct ion was located at 40 cm to the incisors. It appeared regular with no erythema erosions or ulcerations. Rest of the esophagus appeared normal. Patient tolerated the procedure well. At this time the patient continued to remain sedation. The ileostomy bag was removed. Ileostomy site appeared normal. Upper endoscopy was inserted into the ileum and gently advanced 50 cm proximally in the visualized portions of the distal ileum appeared completely normal. No polyps were identified. Patient tolerated the procedure well. Impression: 1. Upper endoscopy revealed multiple small gastric polyps all measuring 2 to 3 mm in size s/p biopsies and mild antral gastritis 2. Ileoscopy revealed normal distal ileum up to 50 cm from the ileostomy site. Recommendations: Findings of this examination were discussed with the patient as well as her family. She was advised to follow-up with the biopsy results. She was advised to have repeat upper endoscopy as well as endoscopy every 2 years.
[2023-07-06 07:35] VITALS: RESP 14
[2023-07-06 08:24] VITALS: BP 102/70; PULSE 75
== END ==
LOC: ORWHC2ENDO 06:10
PROVIDERS: ATTEND Internal Medicine Gastroenterology
DX: K29.50 Unspecified chronic gastritis without bleeding (principal); K31.7 Polyp of stomach and duodenum; K56.609 Unspecified intestinal obstruction, unspecified as to partial versus complete obstruction; F17.200 Nicotine dependence, unspecified, uncomplicated; Z85.038 Personal history of other malignant neoplasm of large intestine; Z88.8 Allergy status to other drugs, medicaments and biological substances; Z79.899 Other long term (current) drug therapy
CPT/HCPCS: 81025; 88305; 88342; 43239; 44380; J2001; J2704